=== PATIENT | male | born 1990 | race Caucasian/White ===

== ENCOUNTER 2024-10-18 19:36 | Emergency (ER) | payer MEDICAID, OTHER ==
[~2024-10-18] VITALS: Ht 182.9 cm; Wt 87.2 kg
[2024-10-18 19:37] VITALS: BP 130/82; PULSE 85; RESP 16; TEMP 98.2; O2SAT 99
== END 2024-10-18 21:56 | disposition left against medical advice (07) ==
LOC: ER 19:36
DX: J02.9 Acute pharyngitis, unspecified (principal); Z53.21 Procedure and treatment not carried out due to patient leaving prior to being seen by health care provider